=== PATIENT | female | born 1985 | race Caucasian/White ===

== ENCOUNTER 2018-03-27 14:33 | Emergency (ER) | payer OTHER ==
[2018-03-27 14:56] VITALS: TEMP 97.7; O2SAT 100
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
[2018-03-27 16:21] VITALS: BP 111/70
== END 2018-03-27 16:20 | disposition home or self-care (01) ==
LOC: ER 14:33
DX: R10.2 Pelvic and perineal pain (principal); Z87.891 Personal history of nicotine dependence

== ENCOUNTER → 2018-03-29 | Outpatient (CLI) | payer OTHER ==
--- NOTE | 2018-03-29 15:03 | US ---
Procedure: US TRANSVAGINAL Exam Date: 03/29/2018 Ordering Provider: Hedy Brown Clinical Indication: PELVIC PAIN Comparison: None Technique: Transvaginal ultrasound of the pelvis was obtained. Findings: The uterus measures 8.3 x 4.5 x 3.5 cm . There are no uterine masses. The endometrial complex measures 9 mm which is within normal limits. There are no masses. The right ovary measures 3.4 x 1.9 x 2.7 cm . There are no suspicious solid or cystic masses. The left ovary measures 2.5 x 1.6 x 1.3 cm . There are no suspicious solid or cystic masses. No evidence of ovarian torsion. No pelvic free fluid. Impression: 1. Negative pelvic ultrasound. Electronically signed by: Kasi Bang MD 03/29/2018 3:[address] [facility]
== END ==
LOC: US 13:48
DX: R10.2 Pelvic and perineal pain (principal)

== ENCOUNTER → 2018-05-31 | Outpatient (CLI) | payer OTHER ==
--- NOTE | 2018-05-31 17:59 | US ---
US THYROID CLINICAL STATEMENT: NODULE. No prior surgery or thyroid therapy. No palpable mass. COMPARISON: None FINDINGS: Size right thyroid lobe: 6.2 x 1.8 x 1.7 cm Size left thyroid lobe: 4.9 x 1.5 x 0.97 cm Size isthmus: 0.17 cm Estimated total number of nodules greater than or equal to 1 cm: 1. Bilateral lobes show heterogeneous echoes. Nodule 1: Size: 1.3 x 0.7 x 0.6 cm Location: Left Lower Composition: solid or almost completely solid: 2 points Echogenicity: hypoechoic: 2 points Shape: wider than tall: 0 points Margins: smooth: 0 points Echogenic foci: none: 0 points ACR Total Points: 4; ACR TI-RADS risk category: TR4 - moderately suspicious nodule. The soft tissue around the thyroid gland shows no evidence of dominant solid mass or discrete cyst. No parenchymal edema or large calcifications. No overlying skin changes. Normal vascularity. IMPRESSION: 1. Nodule 1: ACR TI-RADS 2017 Category TR4. Recommend: Follow-up ultrasound in 1 year.. Recommendations based upon [employer] Best Practice recommendations and ACR TI-RADS 2017 guidelines. Please see below*. 2. The soft tissue around the thyroid gland is unremarkable. *ACR TI-RADS 2017 Recommendations: TR1: No FNA or follow up TR2: No FNA or follow up TR3: FNA if >/= 2.5 cm, follow up if 1.5 - 2.4 cm in 1, 3, and 5 years TR4: FNA if >/= 1.5 cm, follow up if 1.0 - 1.4 cm in 1, 2, 3, and 5 years TR5: FNA if >/= 1.0 cm, follow up if 0.5 - 0.9 cm every year for 5 years ACR TI-RADS recommends that no more than two nodules with the highest ACR TI-RADS total point should be biopsied and no more than four nodules should be followed. Electronically signed by: Jacobo Mendez MD 05/31/2018 5:58 PM [employer]
== END ==
LOC: RESP 12:23
PROVIDERS: ATTEND Family Medicine
DX: E04.1 Nontoxic single thyroid nodule (principal); R07.9 Chest pain, unspecified

== ENCOUNTER → 2018-10-26 | Outpatient (CLI) | payer OTHER | LOC: LAB.O 21:44 | PROVIDERS: ATTEND Internal Medicine Interventional Cardiology | DX: Z91.89 Other specified personal risk factors, not elsewhere classified (principal) ==

== ENCOUNTER 2020-07-13 11:08 | Emergency (ER) | payer SELFPAY ==
[2020-07-13 11:19] VITALS: BP 135/68; TEMP 97.5; O2SAT 98
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
== END 2020-07-13 11:25 | disposition home or self-care (01) ==
LOC: ER 11:08
DX: T16.1XXA Foreign body in right ear, initial encounter (principal); F17.200 Nicotine dependence, unspecified, uncomplicated; Y92.9 Unspecified place or not applicable